=== PATIENT | male | born 1985 | race Caucasian/White ===

== ENCOUNTER 2018-11-05 06:33 | Observation (INO) | payer OTHER ==
--- NOTE | 2018-11-05 07:28 | PDOC ---
History of Present Illness - General Chief Complaint: Sore Throat Stated Complaint: SORE THROAT Time Seen by Provider: 11/05/18 07:20 History Source: Patient Exam Limitations: No Limitations - History of Present Illness Initial Comments: 33 yo M history GERD, EtOH use presents with swelling of the throat. He states he was drinking last night, vomited x1 overnight. Now presents with sensation of swelling of his throat and uvula. This has happened once before, required admission for edema to the oropharynx including the uvula. Denies fever, recent illness. He is able to swallow without difficulty. Past History - Past Medical History Allergies/Adverse Reactions: Allergies Allergy/AdvReac Type Severity Reaction Status Date / Time No Known Allergies Allergy Verified 11/05/18 06:49 Home Medications: Ambulatory Orders Diphenhydramine HCl [Benadryl Capsule -] 50 mg PO TID capsule 06/05/18 predniSONE [Deltasone -] 40 mg PO BID tablet 06/05/18 COPD: No - Surgical History Appendectomy: Yes - Suicide/Smoking/Psychosocial Hx Smoking History: Never smoked Have you smoked in the past 12 months: No Information on smoking cessation initiated: No Hx Alcohol Use: No Drug/Substance Use Hx: No Substance Use Type: None Review of Systems - Review of Systems Able to Perform ROS?: Yes Comments:: GENERAL/CONSTITUTIONAL: No fever or chills. No weakness. HEAD, EYES, EARS, NOSE AND THROAT: No change in vision. No ear pain or discharge. +Sore throat. CARDIOVASCULAR: No chest pain or shortness of breath. RESPIRATORY: No cough, wheezing, or hemoptysis. GASTROINTESTINAL: +Nausea/vomiting last night. No diarrhea or constipation. GENITOURINARY: No dysuria, frequency, or change in urination. MUSCULOSKELETAL: No joint or muscle swelling or pain. No neck or back pain. SKIN: No rash. NEUROLOGIC: No headache, vertigo, loss of consciousness, or change in strength/ sensation. ENDOCRINE: No increased thirst. No abnormal weight change. HEMATOLOGIC/LYMPHATIC: No anemia, easy bleeding, or history of blood clots. ALLERGIC/IMMUNOLOGIC: No hives or skin allergy. *Physical Exam - Vital Signs Last Vital Signs Temp Pulse Resp BP Pulse Ox 97.6 F 96 H 20 115/85 99 11/05/18 06:49 11/05/18 06:49 11/05/18 06:49 11/05/18 06:49 11/05/18 06:49 - Physical Exam Comments: GENERAL: Awake, alert, and fully oriented, in no acute distress HEAD: No signs of trauma EYES: PERRLA, EOMI, sclera anicteric, conjunctiva clear ENT: Auricles normal inspection, hearing grossly normal, nares patent, oropharynx erythematous with tonsillar hypertrophy and erythema. Uvula is midline and edematous. Normal phonation. No trismus. Moist mucosa NECK: Normal ROM, supple, no lymphadenopathy, JVD, or masses LUNGS: Breath sounds equal, clear to auscultation bilaterally. No wheezes, and no crackles HEART: Regular rate and rhythm, normal S1 and S2, no murmurs, rubs or gallops ABDOMEN: Soft, nontender, normoactive bowel sounds. No guarding, no rebound. No masses EXTREMITIES: Normal range of motion, no edema. No clubbing or cyanosis. No cords, erythema, or tenderness NEUROLOGICAL: Cranial nerves II through XII grossly intact. Normal speech, normal gait. Motor and sensation intact SKIN: Warm, Dry, normal turgor, no rashes or lesions noted. Moderate Sedation - Procedure Monitoring Vital Signs: Procedure Monitoring Vital Signs Temperature 97.6 F 11/05/18 06:49 Pulse Rate 96 H 11/05/18 06:49 Respiratory Rate 20 11/05/18 06:49 Blood Pressure 115/85 11/05/18 06:49 O2 Sat by Pulse Oximetry (%) 99 11/05/18 06:49 ED Treatment Course - LABORATORY CBC & Chemistry Diagram: 11/05/18 08:20 11/05/18 08:07 Medical Decision Making - Medical Decision Making 11/05/18 07:56 Pt with uvular edema and edema of the tonsils with erythema diffusely. No uvular deviation, no mass effect. Will give decadron, benadryl, pepcid. Likely admission vs obs for airway monitoring. 11/05/18 10:56 [address] change[address] Will place on observation to monitor. *DC/Admit/Observation/Transfer Diagnosis at time of Disposition: Uvular edema - Discharge Dispostion Condition at time of disposition: Guarded Decision to Admit order: Yes - Referrals - Patient Instructions - Post Discharge Activity
[2018-11-05] MEDS ORDERED: SODIUM CHLORIDE 1,000 ML IV STA (07:56)
[2018-11-05] MEDS ORDERED: FAMOTIDINE 20 MG/50 ML IVPB 20 MG/50 ML MG IVPB ONE (07:56)
[2018-11-05] MEDS ORDERED: DEXAMETHASONE SOD PHOSPHATE 10 MG/1 ML VIAL IVPUSH ONE (07:57)
[2018-11-05] MEDS ORDERED: DEXAMETHASONE SOD PHOSPHATE 10 MG/1 ML VIAL ONE (08:15)
[2018-11-05 08:31] LABS: BASO % 0.3 % (0-2.0); EOS % 0.8 % (0-4.5); HEMATOCRIT 44.9 % (35.4-49); HEMOGLOBIN 15.6 GM/dL (11.7-16.9); LYMPH % 17.5 % (8-40); MCH 29.4 pg (25.7-33.7); MCHC 34.8 g/dl (32.0-35.9); MEAN CELL VOLUME 84.5 fl (80-96); MEAN PLT VOLUME 8.4 fl (7.5-11.1); MONO % 4.8 % (3.8-10.2); NEUT % 76.6 % (42.8-82.8); PLATELET COUNT 259 K/MM3 (134-434); RBC 5.32 M/mm3 (4.00-5.60); RDW 13.1 % (11.9-15.9); WHITE BLOOD COUNT 5.9 K/mm3 (4.0-10.0)
[2018-11-05 08:32] LABS: INR 1.08 (0.83-1.09); PROTHROMBIN TIME (PATIENT) 12.8 SEC (9.7-13.0)
[2018-11-05 08:43] LABS: ALBUMIN 4.5 g/dl (3.4-5.0); ALK PHOS 70 U/L (45-117); ANION GAP 6 MMOL/L (8-16); BILIRUBIN,TOTAL 0.7 mg/dL (0.2-1); BLOOD UREA NITROGEN 17 mg/dL (7-18); CHLORIDE 105 mmol/L (98-107); CO2 26 mmol/L (21-32); CREATININE 0.7 mg/dL (0.55-1.3); GLUCOSE,RANDOM 97 mg/dL (74-106); POTASSIUM 4.1 mmol/L (3.5-5.1); SGOT/AST 12 U/L (15-37); SGPT/ALT 28 U/L (13-61); SODIUM 137 mmol/L (136-145); TOT PROT 7.8 g/dl (6.4-8.2)
--- NOTE | 2018-11-05 11:48 | HP ---
CHIEF COMPLAINT: Throat swelling x 1 day PCP: None HISTORY OF PRESENT ILLNESS: Pt is a 33 yo overweight M with PMHx of GERD, alcohol use presenting with feeling of throat swelling since around 5am this am. No dyspnea, no dysphagia. Last night, pt had a shrimp meal, two beers and 4 shots of whisky, after which he threw up non bloody, vomit of recently ingested food once. No fevers, no prior history of cough or nasal congestion, no sick contacts. No known allergies, no rash or itching. Pt reports waking up with a feeling of throat swelling similar to what he had experienced Apr 2018. He immediately took benadryl and prednisone that he had at home from previous visit then came in to the ED for fear of the swelling worsening. During the last visit, CT neck showed uvula swelling but laryngosocopy was benign. Pt was noted then to have likely CHANEL that could have flared up with the alcohol use. ER course was notable for: (1) Xray- no acute changes (2)decadron 10mg, benadryl 25iv, pepcid 20mg, iv Normal saline (3)Group A strep-ve Recent Travel: PAST MEDICAL HISTORY: overweight GERD, alcohol use disorder PAST SURGICAL HISTORY: Appendectomy Social History: Lives alone, works in construction, uses PPE, family back in [place] Smoking:Denies Alcohol:Whisky Drugs: Denies Family History: No hx of allergies Allergies No Known Allergies Allergy (Verified 11/05/18 06:49) HOME MEDICATIONS: Home Medications Medication Instructions Recorded Diphenhydramine HCl [Benadryl 50 mg PO TID capsule 06/05/18 Capsule -] predniSONE [Deltasone -] 40 mg PO BID tablet 06/05/18 REVIEW OF SYSTEMS Negative except for throat swelling PHYSICAL EXAMINATION Vital Signs - 24 hr 11/05/18 06:49 Temperature 97.6 F Pulse Rate 96 H Respiratory 20 Rate Blood Pressure 115/85 O2 Sat by Pulse 99 Oximetry (%) GENERAL: Awake, alert, and fully oriented, in no acute distress. HEAD: Normal with no signs of trauma. EYES: Pupils equal, round and reactive to light, extraocular movements intact, sclera anicteric, conjunctiva clear. No lid lag. EARS, NOSE, THROAT: Ears normal, nares patent, Mild hyperemia of uvula and tonsils, no swelling noted. Moist mucous membranes. NECK: Normal range of motion, supple without lymphadenopathy, JVD, or masses. LUNGS: Breath sounds equal, clear to auscultation bilaterally. No wheezes, and no crackles. No accessory muscle use. HEART: Regular rate and rhythm, normal S1 and S2 without murmur, rub or gallop. ABDOMEN: R appendectomy scar. Soft, nontender, not distended, normoactive bowel sounds, no guarding, no rebound, no masses. MUSCULOSKELETAL: Normal range of motion at all joints. No bony deformities or tenderness. No CVA tenderness. LOWER EXTREMITIES: 2+ pulses, warm, well-perfused. No calf tenderness. No peripheral edema. NEUROLOGICAL: Cranial nerves II-XII intact. Normal speech. Normal gait. CIWA=0 PSYCHIATRIC: Cooperative. Good eye contact. Appropriate mood and affect. SKIN: Warm, dry, normal turgor, no rashes or lesions noted, normal capillary refill. CBC, BMP 11/05/18 08:20 11/05/18 08:07 Laboratory Results - last 24 hr 11/05/18 11/05/18 11/05/18 08:07 08:11 08:13 WBC RBC Hgb Hct MCV MCH MCHC RDW Plt Count MPV Absolute Neuts (auto) Neutrophils % Lymphocytes % Monocytes % Eosinophils % Basophils % Nucleated RBC % PT with INR 12.80 INR 1.08 Sodium 137 Potassium 4.1 Chloride 105 Carbon Dioxide 26 Anion Gap 6 L BUN 17 Creatinine 0.7 Creat Clearance w eGFR > 60 Random Glucose 97 Calcium 9.0 Total Bilirubin 0.7 AST 12 L ALT 28 Alkaline Phosphatase 70 Total Protein 7.8 Albumin 4.5 Group A Strep Rapid Negative 11/05/18 08:20 WBC 5.9 RBC 5.32 Hgb 15.6 Hct 44.9 MCV 84.5 MCH 29.4 MCHC 34.8 RDW 13.1 Plt Count 259 MPV 8.4 Absolute Neuts (auto) 4.5 Neutrophils % 76.6 D Lymphocytes % 17.5 D Monocytes % 4.8 Eosinophils % 0.8 Basophils % 0.3 Nucleated RBC % 0 PT with INR INR Sodium Potassium Chloride Carbon Dioxide Anion Gap BUN Creatinine Creat Clearance w eGFR Random Glucose Calcium Total Bilirubin AST ALT Alkaline Phosphatase Total Protein Albumin Group A Strep Rapid ASSESSMENT/PLAN: Pt is a 33 yo overweight M with PMHx of GERD, alcohol use presenting with feeling of throat swelling since around 5am this am. Throat swelling Likely chemically induced secondary to alcohol ingestion, vomiting or GERD Pt with previous episode, seen by ENT, likely CHANEL aggravated by alcohol then Not likely angioedema, as patient is not in respiratory distress There may be an allergic component as pt responded to steroid and benadryl and pepcid No fever, or elevated WBCs, not likely infectious at this time- rapid strep negative, flu pending, throat cx pending D/W ENT- pt may receive steroids at this time, if he decompensates would require intubation, otherwise could follow up as outpt Tabs prednisone 40mg daily GERD May consider PPI overweight Diet and exercise counselling Alcohol use disorder Not in withdrawal Monitor for signs of withdrawal May benefit from counselling and outpt follow up FEN No standing fluids Monitor lytes, stable at this time Normal diet PPx Lovenox sq 40mg daily Dispo Obs Visit type - Emergency Visit Emergency Visit: Yes ED Registration Date: 11/05/18 Care time: The patient presented to the Emergency Department on the above date and was hospitalized for further evaluation of their emergent condition. - New Patient This patient is new to me today: Yes Date on this admission: 11/05/18 - Critical Care Critical Care patient: No
--- NOTE | 2018-11-05 16:11 | PN ---
Teaching Attending Note Name of Resident: Sammi Raya ATTENDING PHYSICIAN STATEMENT I saw and evaluated the patient. I reviewed the resident's note and discussed the case with the resident. I agree with the resident's findings and plan as documented. SUBJECTIVE: CC: foreign body sensation in throat. HPI: 33 y/o man with h/o recent admission few months ago for edema in uvula. He presented with a foreign body feeling in his throat. He ate shimp last night, with 2 beers and 4 shots of whisky. He went to bed fine then woke up at 5 am with this sensation . he denies SOB, or cough, or wheezing , or chocking. he denies any fever or chills. He denies drinking regularly. last time he was here for same issue, CT scan showed edematous uvula and he was treated with steroids and H1/H2 blockers and was dc on predniosne and benadryl which he never tooka nd he did not ofllow up. He was seen by ENt then. this am , he took one prednisone and came to ER . 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 OBJECTIVE: NAD , AAOx3. HEENT: MMM, nL voice, NO facial droop, EOMI, round equal pupils, reactive to light, oropharynx with erythema, edema , enlarged tonsils , No exudate , edematous uvula. can't visualize the epiglotis . NL LAP in neck. CV: RRR, no MRG Lungs: CTAB Ext : no edema or erythema. No fungal infection among toes. ASSESSMENT AND PLAN: 33 y/o man with h/o recent admission few months ago for edema in uvula. He presented with a foreign body feeling in his throat. 1- pharyneal edema : Not clear of etiology. could be an allergic/anaphylactic reaction to unknown allergen. He has no fever or leukocytosis, bacterial epglutitis is unlikely. This could be due to chemical irritation with GERd or alcohol +/- snoring. - start steorids, H1/H2 blockers. - Spoke to Dr. Duarte in consultation, Recs to use clindamycine due to R tonsilar prominance - follow throat cx. - check flu swab. - monitor closely . - ENT was called by Dr. Raya. consult was declined. - at dc he will need ENT, and allergy medicine f/u DVT PX
--- NOTE | 2018-11-05 16:44 | CON.ID ---
Consult - Alcohol/Substance Use Hx Alcohol Use: No - Smoking History Smoking history: Never smoked Have you smoked in the past 12 months: No Home Medications - Allergies Allergies/Adverse Reactions: Allergies Allergy/AdvReac Type Severity Reaction Status Date / Time No Known Allergies Allergy Verified 11/05/18 06:49 - Home Medications Home Medications: Ambulatory Orders Diphenhydramine HCl [Benadryl Capsule -] 50 mg PO TID capsule 06/05/18 predniSONE [Deltasone -] 40 mg PO BID tablet 06/05/18 Physical Exam Vital Signs: Vital Signs Temperature 98.9 F 11/05/18 14:26 Pulse Rate 96 H 11/05/18 06:49 Respiratory Rate 20 11/05/18 06:49 Blood Pressure 115/85 11/05/18 06:49 O2 Sat by Pulse Oximetry (%) 99 11/05/18 06:49 Labs: CBC, BMP 11/05/18 08:20 11/05/18 08:07
[2018-11-05] MEDS: CLINDAMYCIN 300 MG PREMIX IVPB 300 MG/50 ML BAG IVPB SCH (18:20)
[2018-11-05] MEDS ORDERED: CLINDAMYCIN 600MG PREMIX IVPB 600 MG/50 ML BAG IVPB ONE (18:23)
[2018-11-05 20:31] VITALS: BMI 33.2
[2018-11-05] MEDS: diphenhydrAMINE HCL 25 MG CAPSULE (FP) PO SCH (23:17)
[2018-11-05] MEDS: RANITIDINE HCL 150 MG TABLET (FP) PO SCH (23:17)
[2018-11-06] MEDS: CLINDAMYCIN 300 MG PREMIX IVPB 300 MG/50 ML BAG IVPB SCH ×2 (01:10→10:21)
[2018-11-06] MEDS: diphenhydrAMINE HCL 25 MG CAPSULE (FP) PO SCH ×2 (06:31→13:08)
[2018-11-06 06:58] LABS: HEMATOCRIT 42.9 % (35.4-49); MCH 29.7 pg (25.7-33.7); MCHC 34.9 g/dl (32.0-35.9); MEAN CELL VOLUME 85.2 fl (80-96); MEAN PLT VOLUME 9.2 fl (7.5-11.1); PLATELET COUNT 276 K/MM3 (134-434); RBC 5.04 M/mm3 (4.00-5.60); RDW 13.3 % (11.9-15.9); WHITE BLOOD COUNT 9.6 K/mm3 (4.0-10.0)
[2018-11-06 07:35] LABS: INR 1.04 (0.83-1.09); PROTHROMBIN TIME (PATIENT) 12.3 SEC (9.7-13.0)
[2018-11-06 07:37] LABS: ACTIVATED PTT 30.8 SECONDS (25.2-36.5)
[2018-11-06 07:44] LABS: ALBUMIN 3.8 g/dl (3.4-5.0); ALK PHOS 66 U/L (45-117); ANION GAP 7 MMOL/L (8-16); BILIRUBIN,TOTAL 0.4 mg/dL (0.2-1); BLOOD UREA NITROGEN 21 mg/dL (7-18); CALCIUM 8.9 mg/dL (8.5-10.1); CHLORIDE 106 mmol/L (98-107); CO2 25 mmol/L (21-32); CREATININE 0.7 mg/dL (0.55-1.3); GLUCOSE,RANDOM 98 mg/dL (74-106); MAGNESIUM 2.3 mg/dL (1.8-2.4); PHOSPHOROUS 3.6 mg/dL (2.5-4.9); POTASSIUM 4.1 mmol/L (3.5-5.1); SGOT/AST 9 U/L (15-37); SGPT/ALT 22 U/L (13-61); SODIUM 138 mmol/L (136-145); TOT PROT 7.1 g/dl (6.4-8.2)
[2018-11-06] MEDS: RANITIDINE HCL 150 MG TABLET (FP) PO SCH (09:33)
[2018-11-06] MEDS ORDERED: predniSONE 20 MG TABLET (UD) PO SCH (10:00)
[2018-11-06] MEDS ORDERED: ENOXAPARIN NA (PORCINE) 40 MG/0.4 ML DISP.SYRIN SQ SCH (10:00)
[2018-11-06 10:41] VITALS: TEMP 98.2
--- NOTE | 2018-11-06 12:09 | PN ---
Progress Note, Physician History of Present Illness: patient looks much better no complaints throat feels better - Current Medication List Current Medications: Active Medications Diphenhydramine HCl (Benadryl -) 25 mg PO TID [facility] Last Admin: 11/06/18 06:31 Dose: 25 mg Enoxaparin Sodium (Lovenox -) 40 mg SQ DAILY [facility] Last Admin: 11/06/18 09:33 Dose: Not Given Clindamycin Phosphate (Cleocin 300 Mg Premix Ivpb) 300 mg in 50 mls @ 100 mls/ hr IVPB Q8H-IV [facility]; Protocol Last Admin: 11/06/18 10:21 Dose: 100 mls/hr Prednisone (Deltasone -) 40 mg PO DAILY [facility] Last Admin: 11/06/18 09:33 Dose: 40 mg Ranitidine HCl (Zantac -) 150 mg PO BID [facility] Last Admin: 11/06/18 09:33 Dose: 150 mg - Objective Vital Signs: Vital Signs Temperature 98.2 F 11/06/18 10:00 Pulse Rate 70 11/06/18 10:00 Respiratory Rate 20 11/06/18 10:00 Blood Pressure 123/73 11/06/18 10:00 O2 Sat by Pulse Oximetry (%) 97 11/06/18 10:00 Constitutional: Yes: No Distress, Calm HENT: Yes: Other (sweling is better) Cardiovascular: Yes: Regular Rate and Rhythm Respiratory: Yes: Regular, CTA Bilaterally Gastrointestinal: Yes: Normal Bowel Sounds, Soft Musculoskeletal: Yes: WNL Extremities: Yes: WNL Neurological: Yes: Alert, Oriented Psychiatric: Yes: Alert, Oriented Labs: CBC, BMP 11/06/18 06:00 11/06/18 06:00 INR, PTT INR 1.04 (0.83-1.09) 11/06/18 06:00 Assessment/Plan pharyngeal edema rt tonsillar enlargement neck pain gerd plan continue clinda throat cx noted will d/w the team
[2018-11-06 13:50] VITALS: BP 128/85; PULSE 65
--- NOTE | 2018-11-06 14:46 | DS ---
Physical Examination Vital Signs: Vital Signs Temperature 98.2 F 11/06/18 13:48 Pulse Rate 65 11/06/18 13:48 Respiratory Rate 20 11/06/18 13:48 Blood Pressure 128/85 11/06/18 13:48 O2 Sat by Pulse Oximetry (%) 97 11/06/18 10:00 Findings/Remarks: no fever or chills, no chocking sensation , no foreign body sensation in his throat. NAD , AAOx3. HEENT: MMM, nL voice, NO facial droop, oropharynx with less erythema. edema of the uvula resolved. edema of tonsils have improved . No exudate CV: RRR, no MRG Lungs: CTAB Ext : no edema or erythema Labs: CBC, BMP 11/06/18 06:00 11/06/18 06:00 Discharge Summary Reason For Visit: UVULAR EDEMA Current Active Problems Uvular edema (Acute) Hospital Course: 33 y/o man with h/o recent admission few months ago for edema in uvula. He presented with a foreign body feeling in his throat. He was found to have edema again in uvula and epiglotison neck xray. he had no resp distress or any resp compromise when he presented. the etiology wasnot clear, ? allergic/ anaphylactic reaction to some allergen Vs infectious, vs other. He was treated with Abx and steroids. ENT luis;uation was declined, and he is to follow with ENT/allergy as out p t. He improved today, and will cont prednisone H1/H2 blockers, and clindamycin. of note, flu and strep were neg Dispo : DC home f/u ENT, resident clinic Condition: Improved - Instructions Diet, Activity, Other Instructions: - you were admitted for swelling in your throat ( epiglotis and uvula ) - please take predniosne as prescribed and do not stop it on your own. - take ranitidine and benadryl as well - take clindamycine for 8 more days - You need referral to allergy medicine. please make an appointment with Dr. abigail Poe ( ENt and allergy medicine ) in 1 week - follow with Dr. Joseph, to establish care with primary care doctor Referrals: Mario Joseph MD [Staff Physician] - 1 Week Wang Poe MD [Staff Physician] - 1 Week Disposition: HOME - Home Medications Comprehensive Discharge Medication List: Ambulatory Orders Clindamycin [Cleocin -] 300 mg PO Q8H #24 capsule 11/06/18 Diphenhydramine HCl [Benadryl Capsule -] 25 mg PO TID #15 capsule 11/06/18 Ranitidine [Zantac -] 150 mg PO BID #10 tablet 11/06/18 predniSONE [Deltasone -] 40 mg PO DAILY #6 tablet 11/06/18 This patient is new to me today: No Emergency Visit: Yes ED Registration Date: 11/05/18 Care time: The patient presented to the Emergency Department on the above date and was hospitalized for further evaluation of their emergent condition. Critical Care patient: No - Discharge Referral Referred to [facility] No
== END 2018-11-06 15:31 | disposition home or self-care (01) ==
LOC: JER 06:33 → JERBED 11:05 → J7W 19:40
PROVIDERS: ADMIT Internal Medicine; ATTEND Internal Medicine
PROC: 3E03329 Introduction of Other Anti-infective into Peripheral Vein, Percutaneous Approach (ICD-10-PCS; principal; 2018-11-05)
PROC: 3E033NZ Introduction of Analgesics, Hypnotics, Sedatives into Peripheral Vein, Percutaneous Approach (ICD-10-PCS; 2018-11-05)
PROC: 3E033GC Introduction of Other Therapeutic Substance into Peripheral Vein, Percutaneous Approach (ICD-10-PCS; 2018-11-05)
PROC: 3E0337Z Introduction of Electrolytic and Water Balance Substance into Peripheral Vein, Percutaneous Approach (ICD-10-PCS; 2018-11-05)
DX: J39.8 Other specified diseases of upper respiratory tract (principal); J39.2 Other diseases of pharynx; K13.79 Other lesions of oral mucosa; K21.9 Gastro-esophageal reflux disease without esophagitis; E66.3 Overweight; Z68.33 Body mass index [BMI] 33.0-33.9, adult; F10.99 Alcohol use, unspecified with unspecified alcohol-induced disorder
CPT/HCPCS: 36415; 70360-TC-FY; 80053; 83735; 84100; 85025; 85027; 85610; 85730; 87070; 87804; 87880; 96365; 96375; 99285-25; G0378; J1100; J7030

== ENCOUNTER 2019-09-21 05:18 | Emergency (ER) | payer OTHER ==
[2019-09-21 05:36] VITALS: BP 138/75; PULSE 74; TEMP 98.4; BMI 31.3
[2019-09-21] MEDS ORDERED: FLUORESCEIN NA 1 EA STRIP ONE (07:38)
[2019-09-21] MEDS ORDERED: TETRACAINE 0.5% OPHTH SOLN 2 ML BOTTLE ONE (07:39)
[2019-09-21] MEDS ORDERED: FLUORESCEIN NA 1 EA STRIP OS ONE (07:40)
[2019-09-21] MEDS ORDERED: TETRACAINE 0.5% HCL 0.6ML DROPPER.BOTTLE OS ONE (07:40)
--- NOTE | 2019-09-21 07:53 | PDOC ---
History of Present Illness - General History Source: Patient Exam Limitations: Clinical Condition - History of Present Illness Initial Comments: 09/21/19 07:54 Patient with no significant past medical history presented with complaint of 5- day history of left eye pain status post being accidentally hit in the left eye with a soccer ball during a soccer game 5 days ago. Patient reported intermittent left eye pain and blurred vision with last for few minutes and improved. Reportedly left eye pain is improving now. Patient also reported mild photosensitivity. Denies dizziness, nausea, vomiting. Denies any other symptoms. Patient did not take anything for symptoms Is this a multiple visit Asthma Patient?: No Timing/Duration: other (5 days) <Srikanth Hadley - Last Filed: 09/21/19 08:14> <Marc Coleman - Last Filed: 09/21/19 11:51> - General Chief Complaint: Eye Problem Stated Complaint: L EYE INJURY Time Seen by Provider: 09/21/19 07:16 Past History - Past Medical History Anemia: No Asthma: No Cancer: No Cardiac Disorders: No CVA: No COPD: No CHF: No Dementia: No Diabetes: No GI Disorders: No Disorders: No HTN: No Hypercholesterolemia: No Liver Disease: No Seizures: No Thyroid Disease: No - Surgical History Abdominal Surgery: No Appendectomy: Yes Cardiac Surgery: No Cholecystectomy: No Lung Surgery: No Neurologic Surgery: No Orthopedic Surgery: No - Psycho Social/Smoking Cessation Hx Smoking History: Never smoked Have you smoked in the past 12 months: No Hx Alcohol Use: No Drug/Substance Use Hx: No Substance Use Type: None Hx Substance Use Treatment: No <Srikanth Hadley - Last Filed: 09/21/19 08:14> <Marc Coleman - Last Filed: 09/21/19 11:51> - Past Medical History Allergies/Adverse Reactions: Allergies Allergy/AdvReac Type Severity Reaction Status Date / Time No Known Allergies Allergy Verified 09/21/19 05:32 Home Medications: Ambulatory Orders Clindamycin [Cleocin -] 300 mg PO Q8H #24 capsule 11/06/18 Diphenhydramine HCl [Benadryl Capsule -] 25 mg PO TID #15 capsule 11/06/18 Ranitidine [Zantac -] 150 mg PO BID #10 tablet 11/06/18 predniSONE [Deltasone -] 40 mg PO DAILY #6 tablet 11/06/18 Cyclopentolate 1% Eye Drops [Cyclogyl 1% Eye Drops -] 2 drop OS Q6H PRN 4 Days # 1 bottle 09/21/19 Review of Systems - Review of Systems Able to Perform ROS?: Yes Is the patient limited Nauruan proficient: No Constitutional: No: Chills, Fever, Malaise HEENTM: Yes: Symptoms Reported, See HPI, Eye Pain (left eye). No: Blurred Vision, Tearing, Recent change in vision, Double Vision, Cataracts, Ear Pain, Ocular Prothesis, Ear Discharge, Nose Pain, Nose Congestion, Tinnitus, Nose Bleeding, Hearing Loss, Throat Pain, Throat Swelling, Mouth Pain, Dental Problems, Difficulty Swallowing, Mouth Swelling, Other Respiratory: No: Symptoms reported, See HPI, Cough, Orthopnea, Shortness of Breath, SOB with Exertion, SOB at Rest, Stridor, Wheezing, Productive cough, Hemoptysis, Other Cardiac (ROS): No: Symptoms Reported, See HPI, Chest Pain, Edema, Irregular Heart Rate, Lightheadedness, Palpitations, Syncope, Chest Tightness, Other ABD/GI: No: Nausea, Vomiting Musculoskeletal: No: Symptoms Reported Integumentary: Yes: Symptoms Reported, See HPI, Bruising (left eyelid) All Other Systems: Reviewed and Negative <Srikanth Hadley - Last Filed: 09/21/19 08:14> *Physical Exam - Vital Signs Last Vital Signs Temp Pulse Resp BP Pulse Ox 98.4 F 74 18 138/75 98 09/21/19 05:31 09/21/19 05:31 09/21/19 05:31 09/21/19 05:31 09/21/19 05:31 - Physical Exam General Appearance: Yes: Nourished, Appropriately Dressed. No: Apparent Distress HEENT: positive: EOMI, MENDEZ, Normal ENT Inspection, Normal Voice, TMs Normal, Pharynx Normal, Nasal Congestion, Other (moderated injected left conjunctiva. mild superficial ecchymosis to left upper eyelid. EOMI. CARI B/L. 20/20 visual acuity OU, 20/25 OD, 20/40 OS. no corneal abrasion in left eye on exam with fluorescein stain). negative: Pharyngeal Erythema, Tonsillar Exudate, Tonsillar Erythema Neck: positive: Supple Respiratory/Chest: positive: Lungs Clear, Normal Breath Sounds. negative: Respiratory Distress, Accessory Muscle Use Cardiovascular: positive: Regular Rhythm, Regular Rate Gastrointestinal/Abdominal: positive: Normal Bowel Sounds, Flat, Soft. negative : Tender, Organomegaly, Guarding, Rebound, Tenderness Musculoskeletal: positive: Normal Inspection Extremity: positive: Normal Capillary Refill, Normal Inspection, Normal Range of Motion Integumentary: positive: Normal Color, Warm. negative: Rash Neurologic: positive: Fully Oriented, Alert, Normal Mood/Affect, Normal Response , Motor Strength 5/5 <Srikanth Hadley - Last Filed: 09/21/19 08:14> - Vital Signs Last Vital Signs Temp Pulse Resp BP Pulse Ox 98.4 F 74 18 138/75 98 09/21/19 05:31 09/21/19 05:31 09/21/19 05:31 09/21/19 05:31 09/21/19 05:31 <Marc Coleman - Last Filed: 09/21/19 11:51> ED Treatment Course - Medications Given in the ED: ED Medications Discontinued Medications Generic Name Dose Route Start Last Admin Trade Name Harpal PRN Reason Stop Dose Admin Fluorescein Sodium 1 ea 09/21/19 07:40 09/21/19 08:06 Fluorets - OS 09/21/19 07:41 1 ea ONCE ONE Administration Tetracaine HCl 1 drop 09/21/19 07:40 09/21/19 08:06 Tetravisc 0.5% Eye Drops - OS 09/21/19 07:41 1 drop ONCE ONE Administration <Marc Coleman - Last Filed: 09/21/19 11:51> Medical Decision Making - Medical Decision Making 09/21/19 07:55 Patient with no significant past medical history presented with complaint of 5- day history of left eye pain status post being accidentally hit in the left eye with a soccer ball during a soccer game 5 days ago. Patient reported intermittent left eye pain and blurred vision with last for few minutes and improved. Reportedly left eye pain is improving now. Patient also reported mild photosensitivity. Denies dizziness, nausea, vomiting. Denies any other symptoms. Patient did not take anything for symptoms Exam significant for moderately injected left conjunctivae with small area of superficial hematoma to upper eyelid. No corneal abrasion or deformity on exam with fluorescein stain. Visual acuity 20/25 right eye and 20/40 left eye and 20 /20 in bilateral eyes. Patient symptoms likely eye contusion and stable for discharge on cyclopentolate PRN for pain due to spasm with ophthalmology follow- up <Srikanth Hadley - Last Filed: 09/21/19 08:14> - Medical Decision Making I reviewed the case of the mid-level practitioner and was available for consultation while in the emergency department <Marc Coleman - Last Filed: 09/21/19 11:51> Discharge - Discharge Information Problems reviewed: Yes - Admission No <Srikanth Hadley - Last Filed: 09/21/19 08:14> <Marc Coleman - Last Filed: 09/21/19 11:51> - Discharge Information Clinical Impression/Diagnosis: Left eye pain Contusion, eye, left Qualifiers: Encounter type: initial encounter Qualified Code(s): S05.12XA - Contusion of eyeball and orbital tissues, left eye, initial encounter Condition: Stable Disposition: HOME - Additional Discharge Information Prescriptions: Cyclopentolate 1% Eye Drops [Cyclogyl 1% Eye Drops -] 2 drop OS Q6H PRN 4 Days # 1 bottle PRN Reason: left eye pain - Follow up/Referral Referrals: Tra Kapadia MD [Staff Physician] - - Patient Discharge Instructions Patient Printed Discharge Instructions: DI for Eye Contusion Additional Instructions: There is no corneal abrasion or laceration to left eye. Symptoms likely caused by contusion . Take prescribed drops as needed for pain. Follow-up referred to ophthalmology as soon as possible Print Language: NIGERIEN
== END 2019-09-21 08:10 | disposition home or self-care (01) ==
LOC: JER 05:18
DX: S05.12XA Contusion of eyeball and orbital tissues, left eye, initial encounter (principal); W21.02XA Struck by soccer ball, initial encounter; Y93.66 Activity, soccer; Y92.322 Soccer field as the place of occurrence of the external cause; Y99.8 Other external cause status
CPT/HCPCS: 99281-25

== ENCOUNTER 2019-11-08 23:54 | Emergency (ER) | payer OTHER ==
[2019-11-09 02:01] VITALS: TEMP 98.2; BMI 25.9
--- NOTE | 2019-11-09 02:15 | PDOC ---
History of Present Illness - General Chief Complaint: Chest Pain Stated Complaint: CHEST PAIN History Source: Patient Exam Limitations: Language Barrier ([id number]) - History of Present Illness Initial Comments: 11/09/19 05:50 34 yo M with no past medical history presents to the emergency department with chest pain for 2 days. Per the patient, the pain is located on the left chest wall, sharp in nature, 8/10, non radiating, and not associated with the following symptoms: fevers, chills, SOB, nausea, vomiting, weakness, FND, headaches, dizziness, lightheadedness, and abdominal pain. Denies back pain. Denies familial cardiac history. Past History - Past Medical History Allergies/Adverse Reactions: Allergies Allergy/AdvReac Type Severity Reaction Status Date / Time No Known Allergies Allergy Verified 11/09/19 01:44 Home Medications: Ambulatory Orders Clindamycin [Cleocin -] 300 mg PO Q8H #24 capsule 11/06/18 Diphenhydramine HCl [Benadryl Capsule -] 25 mg PO TID #15 capsule 11/06/18 Ranitidine [Zantac -] 150 mg PO BID #10 tablet 11/06/18 predniSONE [Deltasone -] 40 mg PO DAILY #6 tablet 11/06/18 Cyclopentolate 1% Eye Drops [Cyclogyl 1% Eye Drops -] 2 drop OS Q6H PRN 4 Days # 1 bottle 09/21/19 Anemia: No Asthma: No Cancer: No Cardiac Disorders: No CVA: No COPD: No CHF: No Dementia: No Diabetes: No GI Disorders: No Disorders: No HTN: No Hypercholesterolemia: No Liver Disease: No Seizures: No Thyroid Disease: No - Surgical History Abdominal Surgery: No Appendectomy: Yes Cardiac Surgery: No Cholecystectomy: No Lung Surgery: No Neurologic Surgery: No Orthopedic Surgery: No - Psycho Social/Smoking Cessation Hx Smoking History: Never smoked Have you smoked in the past 12 months: No Hx Alcohol Use: Yes Drug/Substance Use Hx: No Substance Use Type: None Hx Substance Use Treatment: No Review of Systems - Review of Systems Able to Perform ROS?: Yes Is the patient limited Turkmen proficient: No Constitutional: No: Chills, Diaphoresis, Fever, Weakness HEENTM: No: Eye Pain, Ear Pain, Nose Pain, Throat Pain, Mouth Pain Respiratory: No: Cough, Shortness of Breath, Hemoptysis Cardiac (ROS): Yes: Chest Pain. No: Lightheadedness, Palpitations, Chest Tightness ABD/GI: No: Constipated, Diarrhea, Nausea, Rectal Bleeding, Vomiting, Tarry Stools : No: Burning, Dysuria, Hematuria Musculoskeletal: No: Back Pain, Joint Pain, Neck Pain Integumentary: No: Bruising, Erythema, Rash Neurological: No: Headache, Tingling Psychiatric: No: Change in Appetite Endocrine: No: Unexplained Weight Loss Hematologic/Lymphatic: No: Anemia *Physical Exam - Vital Signs Last Vital Signs Temp Pulse Resp BP Pulse Ox 98.2 F 86 20 107/73 97 11/09/19 01:40 11/09/19 01:40 11/09/19 01:40 11/09/19 01:40 11/09/19 01:40 - Physical Exam General Appearance: Yes: Nourished, Appropriately Dressed. No: Apparent Distress, Intoxicated HEENT: positive: EOMI, MENDEZ, Normal Voice, Symmetrical, Pharynx Normal, Hearing Grossly Normal. negative: Pale Conjunctivae, Scleral Icterus (R), Scleral Icterus (L), Muffled/Hoarse voice, Pharyngeal Erythema, Tonsillar Exudate, Tonsillar Erythema, Nasal Congestion, Rhinorrhea, Sinus Tenderness, Excessive drooling Neck: positive: Trachea midline, Supple. negative: Tender, Lymphadenopathy (R) , Lymphadenopathy (L), Tender lateral, Tender midline Respiratory/Chest: positive: Chest Tender (left chest wall; no rash noted), Lungs Clear, Normal Breath Sounds. negative: Respiratory Distress, Accessory Muscle Use, Crackles, Rales, Rhonchi, Stridor, Wheezing Cardiovascular: positive: Regular Rhythm, Regular Rate, S1, S2. negative: Systolic Murmur Gastrointestinal/Abdominal: positive: Normal Bowel Sounds, Flat, Soft. negative : Tender Lymphatic: negative: Adenopathy Musculoskeletal: positive: Normal Inspection. negative: CVA Tenderness, Vertebral Tenderness Extremity: positive: Normal Capillary Refill, Normal Inspection, Normal Range of Motion. negative: Tender, Pedal Edema Integumentary: positive: Normal Color, Dry, Warm Neurologic: positive: Fully Oriented, Alert, Normal Mood/Affect ED Treatment Course - LABORATORY CBC & Chemistry Diagram: 11/09/19 03:30 11/09/19 03:30 Medical Decision Making - Medical Decision Making 34 yo M with no past medical history presents to the emergency department with chest pain for 2 days. Initial vitals: Initial Vital Signs Temp Pulse Resp BP Pulse Ox 98.2 F 86 20 107/73 97 11/09/19 01:40 11/09/19 01:40 11/09/19 01:40 11/09/19 01:40 11/09/19 01:40 Work up: patient presents to the emergency department with reproducible chest wall pain concerning for ACS vs PNA vs msk pain. Laboratory Tests 11/09/19 11/09/19 03:30 03:30 WBC 7.7 RBC 5.11 Hgb 14.8 Hct 44.1 MCV 86.3 MCH 28.9 MCHC 33.5 RDW 13.3 Plt Count 276 MPV 8.3 Absolute Neuts (auto) 4.8 Neutrophils % 61.8 Lymphocytes % 29.3 D Monocytes % 7.7 Eosinophils % 0.8 Basophils % 0.4 Nucleated RBC % 0 Sodium 140 Potassium 4.0 Chloride 108 H Carbon Dioxide 26 Anion Gap 7 L BUN 21.5 H Creatinine 0.8 Est GFR (CKD-EPI)AfAm 136.03 Est GFR (CKD-EPI)NonAf 117.37 Random Glucose 91 Calcium 8.7 Total Bilirubin 0.6 AST 18 ALT 32 Alkaline Phosphatase 60 Creatine Kinase 136 Troponin I < 0.02 Total Protein 7.3 Albumin 4.0 EKG: ventricular rate is 62 bpm with SD of 182 ms and QRS of [address] elevations or depressions. NSR. Patient has negative troponin with greatly improved symptoms after tylenol administration. Will discharge patient with follow up with PMD Dispo: Discharge Discharge - Discharge Information Problems reviewed: Yes Clinical Impression/Diagnosis: Atypical chest pain Condition: Fair Disposition: HOME - Admission No - Follow up/Referral Referrals: [facility] [place] [facility] [Provider Group] - Patient Discharge Instructions Patient Printed Discharge Instructions: DI for Atypical Chest Pain Additional Instructions: Please return to the emergency department if you have worsening symptoms or new concerning symptoms. Please follow up with the primary medical doctor within 1 week after discharge. Please return to the emergency department if you have worsening symptoms. - Post Discharge Activity
[2019-11-09] MEDS ORDERED: ACETAMINOPHEN 325 MG TABLET (FP) PO ONE (02:16)
--- NOTE | 2019-11-09 02:59 | PDOC ---
Attending Attestation - Resident Resident Name: Eleazar Gray - ED Attending Attestation I have performed the following: I have examined & evaluated the patient, The case was reviewed & discussed with the resident, I agree w/resident's findings & plan - HPI HPI: see resident hpi - Physicial Exam PE: 11/09/19 02:58 see resident exam - Medical Decision Making 11/09/19 02:58 11/09/19 02:57 34-year-old male complaining of positional left-sided chest pain, reproducible with compression on exam Plan for chest x-ray, EKG, labs Patient's PERC score is negative He has no acute dyspnea tachycardia or hypoxemia Clinically PE highly unlikely We will treat with NSAIDs and plan for DC home pending results 11/09/19 02:58
[2019-11-09] MEDS ORDERED: ACETAMINOPHEN 325 MG TABLET (FP) ONE (03:39)
[2019-11-09 03:50] LABS: BASO % 0.4 % (0-2.0); EOS % 0.8 % (0-4.5); HEMATOCRIT 44.1 % (35.4-49); HEMOGLOBIN 14.8 GM/dL (11.7-16.9); LYMPH % 29.3 % (8-40); MCH 28.9 pg (25.7-33.7); MCHC 33.5 g/dl (32.0-35.9); MEAN CELL VOLUME 86.3 fl (80-96); MEAN PLT VOLUME 8.3 fl (7.5-11.1); MONO % 7.7 % (3.8-10.2); NEUT % 61.8 % (42.8-82.8); PLATELET COUNT 276 K/MM3 (134-434); RBC 5.11 M/mm3 (4.00-5.60); RDW 13.3 % (11.9-15.9); WHITE BLOOD COUNT 7.7 K/mm3 (4.0-10.0)
[2019-11-09 04:22] LABS: ALK PHOS 60 U/L (45-117); ANION GAP 7 MMOL/L (8-16); BILIRUBIN,TOTAL 0.6 mg/dL (0.2-1); BLOOD UREA NITROGEN 21.5 mg/dL (7-18); CALCIUM 8.7 mg/dL (8.5-10.1); CHLORIDE 108 mmol/L (98-107); CO2 26 mmol/L (21-32); CREATININE 0.8 mg/dL (0.55-1.3); GLUCOSE,RANDOM 91 mg/dL (74-106); SGOT/AST 18 U/L (15-37); SGPT/ALT 32 U/L (13-61); SODIUM 140 mmol/L (136-145); TOT PROT 7.3 g/dl (6.4-8.2)
[2019-11-09 07:10] VITALS: BP 128/86; PULSE 76
--- NOTE | 2019-11-09 11:29 | EKG ---
Test Reason : Blood Pressure : / mmHG Vent. Rate : 062 BPM Atrial Rate : 062 BPM P-R Int : 182 ms QRS Dur : 102 ms QT Int : 370 ms P-R-T Axes : 044 053 028 degrees QTc Int : 375 ms NORMAL SINUS RHYTHM NORMAL ECG NO PREVIOUS ECGS AVAILABLE Confirmed by JOSÉ ANTONIO AVILA MD ([id number]) on 11/09/2019 11:29:10 AM Referred By: Confirmed By:JOSÉ ANTONIO AVILA MD
== END 2019-11-09 07:07 | disposition home or self-care (01) ==
LOC: JER 23:54
DX: R07.89 Other chest pain (principal)
CPT/HCPCS: 36415; 71045-TC-FY; 80053; 82550; 84484; 85025; 93005; 93010; 99285-25

== ENCOUNTER 2022-06-30 16:39 | Emergency (ER) | payer OTHER ==
[2022-06-30 16:44] VITALS: BP 111/70; PULSE 64; RESP 18; TEMP 97; BMI 28.1
[2022-06-30] MEDS ORDERED: ACETAMINOPHEN 1000 MG/100 ML BAG IVPB ONE (17:35)
[2022-06-30] MEDS ORDERED: ACETAMINOPHEN INJECTION 100 ML IVPB ONE (17:57)
[2022-06-30 19:13] LABS: BASO % 0.4 % (0-2.0); EOS % 1.8 % (0-4.5); HEMATOCRIT 44.7 % (35.4-49); HEMOGLOBIN 14.7 GM/dL (11.7-16.9); MCH 28.7 pg (25.7-33.7); MCHC 32.9 g/dl (32.0-35.9); MEAN CELL VOLUME 87.3 fl (80-96); MEAN PLT VOLUME 8.5 fl (7.5-11.1); MONO % 6.6 % (3.8-10.2); NEUT % 66.2 % (42.8-82.8); PLATELET COUNT 284 10^3/uL (134-434); RBC 5.13 M/mm3 (4.00-5.60); RDW 13.3 % (11.9-15.9); WHITE BLOOD COUNT 7.2 K/mm3 (4.0-10.0)
[2022-06-30 19:24] LABS: CALCIUM 9.5 mg/dL (8.5-10.1)
[2022-06-30 19:26] LABS: BLOOD UREA NITROGEN 15.6 mg/dL (7-18)
[2022-06-30 19:28] LABS: CREATININE 0.7 mg/dL (0.55-1.3)
[2022-06-30 19:29] LABS: TOT PROT 7.4 g/dl (6.4-8.2)
[2022-06-30 19:30] LABS: BILIRUBIN,TOTAL 0.3 mg/dL (0.2-1)
== END 2022-06-30 20:49 | disposition home or self-care (01) ==
LOC: JER 16:39
PROC: 3E033GC Introduction of Other Therapeutic Substance into Peripheral Vein, Percutaneous Approach (ICD-10-PCS; principal; 2022-06-30)
DX: R07.9 Chest pain, unspecified (principal)
CPT/HCPCS: 36415; 71045-TC-FY; 80053; 84484; 85025; 93005; 93010; 99285-25